=== PATIENT | male | born 1990 | race African-American/Black ===

== ENCOUNTER 2024-12-21 08:53 | Emergency (ER) | payer OTHER ==
[~2024-12-21] VITALS: Ht 170.2 cm; Wt 50.0 kg
[2024-12-21 09:11] VITALS: O2SAT 100
[2024-12-21 09:42] LABS: CLARITY URINE CLEAR (CLEAR); COLOR URINE YELLOW (YELLOW); GLUCOSE URINE NEGATIVE (NEGATIVE); KETONES URINE NEGATIVE (NEGATIVE); LEUKOCYTE ESTERASE URINE 2+ (NEGATIVE); NITRITE URINE NEGATIVE (NEGATIVE); OCCULT BLOOD URINE NEGATIVE (NEGATIVE); PROTEIN URINE NEGATIVE (NEGATIVE)
[2024-12-21 10:02] LABS: SQUAMOUS EPITHELIAL CELL URINE NONE SEEN /lpf (RARE/1+)
[2024-12-21 10:05] LABS: WBC URINE 25-50 /hpf (0-2)
[2024-12-21 10:06] LABS: RBC URINE 0-2 /hpf (0-2)
[2024-12-21 10:08] LABS: BACTERIA URINE RARE
[2024-12-21 10:09] LABS: YEAST URINE NONE SEEN
[2024-12-21 10:53] VITALS: BP 118/74; PULSE 60; RESP 15; TEMP 36.7; O2SAT 100
[2024-12-21] MEDS ORDERED: DOXY100C74 MT (11:35)
[2024-12-21] MEDS: LIDOCAINE HCL 1% 20ML VIAL INFIL ONE (12:00)
[2024-12-21] MEDS: CEFTRIAXONE SODIUM 250MG VIAL IM ONE (12:00)
== END 2024-12-21 12:03 | disposition home or self-care (01) ==
LOC: ER 08:53
DX: A64 Unspecified sexually transmitted disease (principal); Z98.890 Other specified postprocedural states; Z79.899 Other long term (current) drug therapy
CPT/HCPCS: 99283; 81003; 87086; 96372; J0696; J3490